=== PATIENT | female | born 1950 | race Two or more races ===

== ENCOUNTER 2016-06-21 22:37 | Emergency (ER) | payer SELFPAY ==
[~2016-06-21] VITALS: Ht 152.4 cm; Wt 68.0 kg
[2016-06-21 22:48] VITALS: BP 158/83
[2016-06-21] MEDS ORDERED: LOSA25TA13 PO (22:55)
== END 2016-06-22 00:22 | disposition home or self-care (01) ==
LOC: ER 22:42
DX: J06.9 Acute upper respiratory infection, unspecified (principal); I10 Essential (primary) hypertension; Z88.6 Allergy status to analgesic agent
CPT/HCPCS: 71010; 99283; A4606; Z7610